=== PATIENT | female | born 1965 | race Caucasian/White ===

== ENCOUNTER 2017-07-20 05:43 | Day surgery (SDC) | payer BC ==
[~2017-07-20] VITALS: Ht 175.3 cm; Wt 131.5 kg
[~2017-07-20 05:43] MED LIST: COZAAR100 MG PO; DITROPAN XL10 MG PO; IBUPROFEN600 MG PO; SINGULAIR10 MG PO; TYLENOL EXTRA500 MG PO; ZOCOR40 MG PO; ZYRTEC10 M2 PO
[2017-07-20 06:16] VITALS: BP 134/88
[2017-07-20 09:25] VITALS: BP 170/78
[2017-07-20 10:15] VITALS: BP 142/78
== END 2017-07-20 10:20 | disposition home or self-care (01) ==
LOC: SDC 05:43
PROC: 0UBC7ZX Excision of Cervix, Via Natural or Artificial Opening, Diagnostic (ICD-10-PCS; principal; 2017-07-20)
DX: D06.9 Carcinoma in situ of cervix, unspecified (principal); I10 Essential (primary) hypertension; E66.9 Obesity, unspecified; Z68.41 Body mass index [BMI] 40.0-44.9, adult; F17.210 Nicotine dependence, cigarettes, uncomplicated; E78.5 Hyperlipidemia, unspecified; Z86.14 Personal history of Methicillin resistant Staphylococcus aureus infection; K21.9 Gastro-esophageal reflux disease without esophagitis
CPT/HCPCS: 84702; 87641; 88307; J0330; J0690; J2250; J2405; J3010